=== PATIENT | female | born 1995 | race Asian ===

== ENCOUNTER 2016-09-13 13:44 | Emergency (ER) | payer OTHER ==
--- NOTE | 2016-09-13 15:42 | EDPHY ---
H & P Time Seen by Provider: 09/13/16 15:20 HPI/ROS: HPI: 21-year-old 2 para 1 Mandarin speaking female presents to emergency department with chief concern positive test 2 weeks ago, 1 transient episode of vaginal bleeding yesterday and intermittent left lower quadrant pain for a few days. No fever, chills, URI symptoms, shortness of breath, chest pain, nausea, vomiting, diarrhea, urinary symptoms, back or flank pain. No trauma. Moved here from [place] 1 month ago. Her fiancee lives here. She gave to her son 5 months ago. HPI taking with Mandarin glass cutter helper. ROS:10 point review of systems is negative other than as stated in HPI Smoking Status: Never smoked Physical Exam: Vital signs reviewed by me General: Awake, alert, calm, cooperative. No acute distress. Head: Normalocephalic. Atraumatic. EENT: PERRLA. EOMI. No pallor or injection. Anicteric. No nystagmus. No injection. Neck: Supple, nontender. No lymphadenopathy. Full range of motion. No meningismus. Respiratory: Breathing unlabored. Breath sounds equal bilaterally and clear to auscultation. No adventitious sounds. CV: Chest nontender, atraumatic. Heart rate regular. No murmur, distal pulses 2+ bilaterally. Brisk cap refill all extremities. GI: Abdomen soft, nontender. Bowel sounds normoactive and positive x4 quadrants. : No suprapubic tenderness. No CVA or flank tenderness. Pelvic: Normal external exam. Internal exam unremarkable. No lesions, no bleeding, no discharge. Cervix is closed. Neuro: Alert. Oriented x 3. Speech clear. Nonfocal cranial nerves throughout. Sensation intact all extremities. Skin: Skin warm, dry, intact. No rashes, abrasions, or lacerations. Skin turgor normal. Extremities: Full range of motion in all 4 extremities. Strength 5+ all extremities. Constitutional: Initial Vital Signs Temperature (C) 36.4 C 09/13/16 13:50 Heart Rate 67 09/13/16 13:50 Respiratory Rate 16 09/13/16 13:50 Blood Pressure 108/64 09/13/16 13:50 O2 Sat (%) 99 09/13/16 13:50 O2 Delivery Mode Room Air Allergies/Adverse Reactions: No Known Allergies Allergy (Unverified 09/13/16 13:54) Home Medications: Medication Instructions Recorded Cephalexin [Keflex (*)] 500 mg PO BID #14 cap 09/13/16 Medical Decision Making - Diagnostics Imaging: Ultrasound : Indication: Vaginal bleeding, left lower abdominal pain: Ultrasound obstetrics first trimester History: Pain and vaginal bleeding. Findings: There is a viable intrauterine . [place]-rump length measures 16.2 mm correlating to 8 weeks and 1 day. Yolk sac is visualized. Heart rate is 163 bpm. There is a subchorionic hemorrhage inferiorly measuring 1.7 x 0.7 x 1.6 cm. Both ovaries are visualized and normal in appearance, the right measuring 2.9 x 1.9 x 2.0 cm and the left measuring 2.8 x 1.3 x 1.9 cm. No significant free fluid. Impression: Single living intrauterine with an estimated gestational age by ultrasound of 8 weeks and 1 day. 1.7-cm subchorionic hemorrhage inferiorly. Results called and discussed with Prisca Underwood N.P., on September 13, 2016 at 1831 hours. Dictated By: Pedrito Santos MD *This report was compiled using a voice recognition dictation system and may contain typographical errors* 28 T: [email or web address] 09/13/16 1838 Electronically Signed by: Pedrito Santos MD 09/13/16 2549 CC: Prisca Underwood CANDY CATCHER; PCP Not In, Dictionary ; ALFONSO GREER ED Course/Re-evaluation: 1540: Stable nontoxic 21-year-old female who speaks Mandarin presents to emergency department with a positive test 2 weeks ago, 1 transient episode of vaginal bleeding yesterday when she wiped after urination, and intermittent mild left lower quadrant pain for several days that is not present now. HPI was obtained with a Mandarin glass cutter helper on the phone. Pelvic exam unremarkable. Labs are pending. Once confirmed, we will order a obstetric ultrasound to rule out ectopic . Patient has no bleeding or pain presently. 1715: White count 01193. H&H 12.2/35.7. HCG positive at 1 9 3, 270. Rh factor A positive. Urinalysis shows 2+ blood, 2+ esterase, 5-10 RBCs, 5-10 WBCs. Urine culture pending. We will treat her for a UTI with Keflex. Obstetrical ultrasound is pending at this time. Differential Diagnosis: Differential diagnosis includes but is not limited to normal intrauterine , ectopic , urinary tract infection, STI, threatened or spontaneous - Data Points Laboratory Results: Laboratory Results 09/13/16 15:00 09/13/16 09/13/16 09/13/16 16:30 15:00 15:00 WBC RBC Hgb Hct MCV MCH MCHC RDW Plt Count MPV Neut % (Auto) Lymph % (Auto) [place] % (Auto) Eos % (Auto) Baso % (Auto) Nucleat RBC Rel Count Absolute Neuts (auto) Absolute Lymphs (auto) Absolute Monos (auto) Absolute Eos (auto) Absolute Basos (auto) Absolute Nucleated RBC Immature Gran % Immature Gran # Beta HCG, Qual POSITIVE Beta HCG, Quant 099937.00 mIU/mL H mIU/mL (0-4.83) Urine Color Urine Appearance Urine pH Ur Specific [place] Urine Protein Urine Ketones Urine Blood Urine Nitrate Urine Bilirubin Urine Urobilinogen Ur Leukocyte Esterase Urine RBC Urine WBC Ur Epithelial Cells Urine Mucus Urine Glucose Patient ABO/Rh A POSITIVE 09/13/16 09/13/16 15:00 14:53 WBC 11.92 10^3/uL H 10^3/uL (3.80-9.50) RBC 4.51 10^6/uL 10^6/uL (4.18-5.33) Hgb 12.2 g/dL L g/dL (12.6-16.3) Hct 35.7 % L % (38.0-47.0) MCV 79.2 fL L fL (81.5-99.8) MCH 27.1 pg L pg (27.9-34.1) MCHC 34.2 g/dL g/dL (32.4-36.7) RDW 16.8 % H % (11.5-15.2) Plt Count 290 10^3/uL 10^3/uL (150-400) MPV 11.8 fL H fL (8.7-11.7) Neut % (Auto) 70.8 % % (39.3-74.2) Lymph % (Auto) 21.3 % % (15.0-45.0) [place] % (Auto) 6.6 % % (4.5-13.0) Eos % (Auto) 0.7 % % (0.6-7.6) Baso % (Auto) 0.3 % % (0.3-1.7) Nucleat RBC Rel Count 0.0 % % (0.0-0.2) Absolute Neuts (auto) 8.44 10^3/uL H 10^3/uL (1.70-6.50) Absolute Lymphs (auto) 2.54 10^3/uL 10^3/uL (1.00-3.00) Absolute Monos (auto) 0.79 10^3/uL 10^3/uL (0.30-0.80) Absolute Eos (auto) 0.08 10^3/uL 10^3/uL (0.03-0.40) Absolute Basos (auto) 0.03 10^3/uL 10^3/uL (0.02-0.10) Absolute Nucleated RBC 0.00 10^3/uL 10^3/uL (0-0.01) Immature Gran % 0.3 % % (0.0-1.1) Immature Gran # 0.04 10^3/uL 10^3/uL (0.00-0.10) Beta HCG, Qual Beta HCG, Quant Urine Color YELLOW Urine Appearance HAZY Urine pH 6.0 (5.0-7.5) Ur Specific [place] 1.015 (1.002-1.030) Urine Protein NEGATIVE (NEGATIVE) Urine Ketones NEGATIVE (NEGATIVE) Urine Blood 2+ H (NEGATIVE) Urine Nitrate NEGATIVE (NEGATIVE) Urine Bilirubin NEGATIVE (NEGATIVE) Urine Urobilinogen NEGATIVE EU EU (0.2-1.0) Ur Leukocyte Esterase 2+ H (NEGATIVE) Urine RBC 5-10 /hpf H /hpf (0-3) Urine WBC 5-10 /hpf H /hpf (0-3) Ur Epithelial Cells 1+ /lpf /lpf (NONE-1+) Urine Mucus TRACE /lpf /lpf (NONE-1+) Urine Glucose NEGATIVE (NEGATIVE) Patient ABO/Rh Medications Given: Discontinued Medications Cephalexin HCl (Keflex) 500 mg PO EDNOW ONE PRN Reason: Protocol Stop: 09/13/16 17:23 Last Admin: 09/13/16 18:15 Dose: 500 mg Departure - Departure Disposition: Home, Routine, Self-Care Clinical Impression: Intrauterine , UTI (urinary tract infection), Subchorionic hemorrhage in first trimester Condition: Good Instructions: (ED), Urinary Tract Infection in (ED), Subchorionic Hemorrhage (ED) Additional Instructions: Plan: Please follow up with range operator Dr. Hue Leger listed in your paperwork for recheck without fail within the next 5 days--When you call to schedule appointment, please let the office know you are an "ER follow up" appointment" Keflex antibiotic twice daily for 7 days for urinary tract infection Return here for worsening symptoms despite treatment plan Referrals: NONE *PRIMARY CARE P,. [Unknown] - As per Instructions Hue Frost MD [Medical Doctor] - As per Instructions Prescriptions: Cephalexin [Keflex (*)] 500 mg PO BID #14 cap Print Language: [facility]
[2016-09-13 15:44] LABS: % IMMATURE GRANULYOCYTES 0.3 % (0.0-1.1); ABSOLUTE IMMATURE GRANULOCYTES 0.04 10^3/uL (0.00-0.10); ADD DIFF? NO; ADD MORPH? NO; ADD SCAN? NO; ATYPICAL LYMPHOCYTE FLAG 0 (0-99); FRAGMENT RBC FLAG 20 (0-99); HEMATOCRIT 35.7 % (38.0-47.0); HEMOGLOBIN 12.2 g/dL (12.6-16.3); LEFT SHIFT FLG 0 (0-99); LIPEMIA HEMOLYSIS FLAG 90 (0-99); MEAN CELL HEMOGLOBIN 27.1 pg (27.9-34.1); MEAN CELL HEMOGLOBIN CONCENTR. 34.2 g/dL (32.4-36.7); MEAN CELL VOLUME 79.2 fL (81.5-99.8); MEAN PLATELET VOLUME 11.8 fL (8.7-11.7); PLATELET CLUMPS FLAG 0 (0-99); PLATELET COUNT 290 10^3/uL (150-400); RED BLOOD CELL COUNT 4.51 10^6/uL (4.18-5.33); RED CELL DISTRIBUTION WIDTH 16.8 % (11.5-15.2)
[2016-09-13 16:16] LABS: COLOR YELLOW; LEUKOCYTE ESTERASE,URINE 2+ (NEGATIVE); NITRITE,URINE NEGATIVE (NEGATIVE)
[2016-09-13 16:43] LABS: MUCUS TRACE /lpf (NONE-1+)
[2016-09-13] MEDS ORDERED: CEPHALEXIN 500 MG CAP PO ONE (17:22)
[2016-09-13 19:01] VITALS: BP 92/56; PULSE 64; RESP 20; TEMP 98.4; O2SAT 97
== END 2016-09-13 19:01 | disposition home or self-care (01) ==
DX: O36.8911 Maternal care for other specified fetal problems, first trimester, fetus 1 (principal); O23.41 Unspecified infection of urinary tract in pregnancy, first trimester; B96.89 Other specified bacterial agents as the cause of diseases classified elsewhere; Z3A.08 8 weeks gestation of pregnancy

== ENCOUNTER → 2016-12-08 | Outpatient (CLI) | payer OTHER | LOC: FIMAGING 14:16 | PROVIDERS: ATTEND Physician Assistant | DX: O09.32 Supervision of pregnancy with insufficient antenatal care, second trimester (principal); Z3A.20 20 weeks gestation of pregnancy ==

== ENCOUNTER 2017-12-02 05:04 | Emergency (ER) | payer MEDICAID, OTHER ==
[2017-12-02] MEDS ORDERED: NS 1,000 ML IV ONE ×2 (05:29→06:39)
[2017-12-02 05:38] LABS: PLATELET COUNT 211 10^3/uL (150-400)
[2017-12-02] MEDS ORDERED: KETOROLAC 15 MG/1 ML SDV IVP ONE (05:44)
--- NOTE | 2017-12-02 05:44 | EDPHY ---
H & P Stated Complaint: low back pain fever Time Seen by Provider: 12/02/17 05:16 HPI/ROS: History obtained using [employer] bilingual interpreter on the phone. HPI The patient presents with 2 days of low back pain which started slowly has been intermittent and is getting progressively worse. This is associated as with subjective fevers at home which have been intermittent. She also notes that her urine smells funny. She does not have any dysuria or hematuria. She does report some leg spasms of both of her legs. She has had a UTI before. She has not had any nausea or vomiting.. REVIEW OF SYSTEMS Constitutional: No fever, no chills. Eyes: No discharge. ENT: No sore throat. Cardiovascular: No chest pain, no palpitations. Respiratory: No cough, no shortness of breath. Gastrointestinal: See HPI Genitourinary: No hematuria. Musculoskeletal: No back pain. Skin: No rashes. Neurological: No headache. PMHx: Healthy Soc Hx: FHx: PHYSICAL General Appearance: Alert, no distress Eyes: Pupils equal and round no pallor or injection ENT, Mouth: Mucous membranes moist Respiratory: There are no retractions, lungs are clear to auscultation Cardiovascular: Tachycardic rate with regular rhythm Gastrointestinal: Abdomen is soft and non-tender, no masses, bowel sounds normal Back: There is right greater than left CVA tenderness present Neurological: A&O, moves all extremities Skin: Warm and dry, no rashes Musculoskeletal: Neck is supple non tender Extremities: symmetrical, full range of motion Psychiatric: Patient is oriented X 3, there is no agitation Source: Patient Exam Limitations: No limitations - Personal History LMP (Females 10-55): 22-28 Days Ago Current Tetanus/Diphtheria Vaccine: Yes Current Tetanus Diphtheria and Acellular Pertussis (TDAP): Yes - Medical/Surgical History Hx Asthma: No Hx Chronic Respiratory Disease: No Hx Diabetes: No Hx Cardiac Disease: No Hx Renal Disease: No Hx Cirrhosis: No Hx Alcoholism: No Hx HIV/AIDS: No Hx Splenectomy or Spleen Trauma: No Other PMH: - Social History Smoking Status: Never smoked Constitutional: Initial Vital Signs Temperature (C) 37.7 C 12/02/17 05:08 Heart Rate 110 H 12/02/17 05:08 Respiratory Rate 18 12/02/17 05:08 Blood Pressure 94/57 L 12/02/17 05:08 O2 Sat (%) 98 12/02/17 05:08 O2 Delivery Mode Room Air Allergies/Adverse Reactions: No Known Allergies Allergy (Unverified 09/13/16 13:54) Home Medications: Medication Instructions Recorded levOFLOXACIN [Levofloxacin] 750 mg PO DAILY #7 tablet 12/02/17 Medical Decision Making Differential Diagnosis: This is a 22-year-old female who presents with 2 days of lower back pain associated with fever and foul-smelling urine. On exam, she is tachycardic with CVA tenderness. Differential diagnosis includes pyelonephritis, ureterolithiasis, viral illness , less likely meningitis given no nuchal rigidity. Less likely epidural spinal abscess given no midline tenderness. In the emergency department, patient received IV fluids, Toradol. She felt better though continued to have pain. She was given a dose of fentanyl which helped her. Her heart rate is in the high 90s and I will give her a 2nd L of fluid. She complained that her legs felt weak, upon reexamination she has 5/5 strength in dorsi and plantar flexion, knee flexion and extension and hip flexion. Her reflexes are 2+ patellar and brisk. Labs have revealed signs of pyelonephritis based on UA as well as a leukocytosis. The patient is not exhibiting any signs of sepsis. She is able to drink fluids without difficulty and I anticipate she will be able to discharge home. I have discussed treatment with her, I have encouraged her to drink plenty of fluids. I will give her a course of Levaquin per our antibiotic Jerad. She will be discharged with pain medication as needed. I have discussed return precautions. - Data Points Laboratory Results: Laboratory Results 12/02/17 03:30 12/02/17 03:30 12/02/17 12/02/17 12/02/17 05:50 03:30 03:30 WBC RBC Hgb Hct MCV MCH MCHC RDW Plt Count MPV Neut % (Auto) Lymph % (Auto) [place] % (Auto) Eos % (Auto) Baso % (Auto) Nucleat RBC Rel Count Absolute Neuts (auto) Absolute Lymphs (auto) Absolute Monos (auto) Absolute Eos (auto) Absolute Basos (auto) Absolute Nucleated RBC Immature Gran % Immature Gran # Sodium 139 mEq/L mEq/L (135-145) Potassium 3.7 mEq/L mEq/L (3.3-5.0) Chloride 111 mEq/L H mEq/L (97-110) Carbon Dioxide 17 mEq/l L mEq/l (22-31) Anion Gap 11 mEq/L mEq/L (8-16) BUN 10 mg/dL mg/dL (7-23) Creatinine 0.7 mg/dL mg/dL (0.6-1.0) Estimated GFR > 60 Glucose 96 mg/dL mg/dL (70-100) Calcium 9.6 mg/dL mg/dL (8.5-10.4) Beta HCG, Qual NEGATIVE Urine Color YELLOW Urine Appearance MODERATELY TURBID Urine pH 7.0 (5.0-7.5) Ur Specific [place] 1.015 (1.002-1.030) Urine Protein 2+ H (NEGATIVE) Urine Ketones NEGATIVE (NEGATIVE) Urine Blood 1+ H (NEGATIVE) Urine Nitrate NEGATIVE (NEGATIVE) Urine Bilirubin NEGATIVE (NEGATIVE) Urine Urobilinogen 4.0 EU H EU (0.2-1.0) Ur Leukocyte Esterase 3+ H (NEGATIVE) Urine RBC 25-50 /hpf H /hpf (0-3) Urine WBC 50-182 /hpf H /hpf (0-3) Ur Epithelial Cells TRACE /lpf /lpf (NONE-1+) Urine Bacteria 2+ /hpf H /hpf (NONE SEEN) Urine Mucus TRACE /lpf /lpf (NONE-1+) Urine Glucose NEGATIVE (NEGATIVE) 12/02/17 03:30 WBC 13.13 10^3/uL H 10^3/uL (3.80-9.50) RBC 4.27 10^6/uL 10^6/uL (4.18-5.33) Hgb 11.6 g/dL L g/dL (12.6-16.3) Hct 33.7 % L % (38.0-47.0) MCV 78.9 fL L fL (81.5-99.8) MCH 27.2 pg L pg (27.9-34.1) MCHC 34.4 g/dL g/dL (32.4-36.7) RDW 16.6 % H % (11.5-15.2) Plt Count 211 10^3/uL 10^3/uL (150-400) MPV 11.0 fL fL (8.7-11.7) Neut % (Auto) 84.6 % H % (39.3-74.2) Lymph % (Auto) 7.5 % L % (15.0-45.0) [place] % (Auto) 7.2 % % (4.5-13.0) Eos % (Auto) 0.2 % L % (0.6-7.6) Baso % (Auto) 0.2 % L % (0.3-1.7) Nucleat RBC Rel Count 0.0 % % (0.0-0.2) Absolute Neuts (auto) 11.12 10^3/uL H 10^3/uL (1.70-6.50) Absolute Lymphs (auto) 0.99 10^3/uL L 10^3/uL (1.00-3.00) Absolute Monos (auto) 0.94 10^3/uL H 10^3/uL (0.30-0.80) Absolute Eos (auto) 0.02 10^3/uL L 10^3/uL (0.03-0.40) Absolute Basos (auto) 0.02 10^3/uL 10^3/uL (0.02-0.10) Absolute Nucleated RBC 0.00 10^3/uL 10^3/uL (0-0.01) Immature Gran % 0.3 % % (0.0-1.1) Immature Gran # 0.04 10^3/uL 10^3/uL (0.00-0.10) Sodium Potassium Chloride Carbon Dioxide Anion Gap BUN Creatinine Estimated GFR Glucose Calcium Beta HCG, Qual Urine Color Urine Appearance Urine pH Ur Specific [place] Urine Protein Urine Ketones Urine Blood Urine Nitrate Urine Bilirubin Urine Urobilinogen Ur Leukocyte Esterase Urine RBC Urine WBC Ur Epithelial Cells Urine Bacteria Urine Mucus Urine Glucose Medications Given: Ceftriaxone Sodium/Dextrose (Rocephin 1 Gm (Premix)) 50 mls @ 100 mls/hr IV EDNOW ONE PRN Reason: Protocol Stop: 12/02/17 06:57 Last Admin: 12/02/17 06:38 Dose: 50 mls Discontinued Medications Fentanyl (Sublimaze) 50 mcg IVP EDNOW ONE Stop: 12/02/17 06:30 Last Admin: 12/02/17 06:34 Dose: 50 mcg Sodium Chloride (Ns) 1,000 mls @ 0 mls/hr IV ONCE ONE; Wide Open PRN Reason: Protocol Stop: 12/02/17 05:30 Last Admin: 12/02/17 05:50 Dose: 1,000 mls Ketorolac Tromethamine (Toradol) 15 mg IVP EDNOW ONE Stop: 12/02/17 05:45 Last Admin: 12/02/17 05:51 Dose: 15 mg Departure - Departure Disposition: Home, Routine, Self-Care Clinical Impression: Acute pyelonephritis Condition: Good Instructions: Kidney Infection (ED) Additional Instructions: Please make sure to drink plenty of fluids. You should take ibuprofen 400 mg every 6 hr as needed for pain. If the pain is more severe, you should take the pain medication I have prescribed for you. Referrals: Meño Sherwood MD [Medical Doctor] - As per Instructions Prescriptions: levOFLOXACIN [Levofloxacin] 750 mg PO DAILY #7 tablet
[2017-12-02] MEDS ORDERED: fentaNYL 100 MCG/2 ML INJ IVP ONE ×2 (06:29)
[2017-12-02] MEDS ORDERED: ONDANSETRON 4MG PREPACK#2 BTL TAKEHOME ONE (06:53)
[2017-12-02] MEDS ORDERED: HYDROCOD/APAP 5/325 PREPACK#6 BTL TAKEHOME ONE (06:53)
[2017-12-02 07:50] VITALS: BP 91/54
== END 2017-12-02 07:51 | disposition home or self-care (01) ==
DX: N10 Acute pyelonephritis (principal); E86.9 Volume depletion, unspecified
CPT/HCPCS: 96365; J0696; J1885; J3010